=== PATIENT | female | born 1970 | race Hispanic/Latino ===

== ENCOUNTER 2018-06-16 10:41 | Emergency (ER) | payer BC ==
[2018-06-16] MEDS ORDERED: HYDROCORTISONE 25 MG SUPPOSITORY PR ONE (11:08)
[2018-06-16] MEDS ORDERED: LIDOCAINE HCL 2% JELLY 5 ML ONE (11:08)
[2018-06-16 11:48] LABS: APPEARANCE,URINE Clear (CLEAR); BILIRUBIN,URINE Negative (NEGATIVE); COLOR,URINE Yellow (YELLOW); GLUCOSE, URINE (UA) Negative (NEGATIVE); KETONES,URINE Negative (NEGATIVE); LEUKOCYTE ESTERASE ,URINE Negative (NEGATIVE); NITRATE,URINE Negative (NEGATIVE); OCCULT BLOOD,URINE Negative (NEGATIVE); PH,URINE 8.5 (5.0-8.0); PROTEIN,URINE Negative (NEGATIVE); UROBILINOGEN,URINE 0.2 mg/dL (0.2-1.0)
[2018-06-16 11:53] LABS: HCG,QUAL RESULT NEGATIVE (NEGATIVE)
== END 2018-06-16 11:49 | disposition home or self-care (01) ==
LOC: EDH 10:41
DX: K64.9 Unspecified hemorrhoids (principal); I10 Essential (primary) hypertension; Z98.890 Other specified postprocedural states; Z88.6 Allergy status to analgesic agent
CPT/HCPCS: 81003; 81025

== ENCOUNTER 2024-05-23 12:24 | Emergency (ER) | payer BC, SELFPAY ==
[~2024-05-23] VITALS: Ht 162.6 cm; Wt 81.6 kg
[~2024-05-23 12:24] MED LIST: HYDR-3421 PO; NITR100C4 PO
--- NOTE | 2024-05-23 12:47 | NUR ---
DR MCGUIRE RADIOLOGY CT NEGATIVE CODE STROKE NOTIFIED DR SWENSON
--- NOTE | 2024-05-23 12:49 | HMCIMG ---
Exam: NONCONTRAST CT BRAIN REASON: STROKE/TIA. COMPARISON: 03/18/2024 TECHNIQUE: Images are obtained from vertex to the skull base. The exam was performed without IV contrast. FINDINGS: There is normal appearing brain parenchyma. There are no focal mass lesions. There is is no evidence of intracranial hemorrhage or acute stroke. Ventricles and sulci appear normal. Posterior fossa and brainstem structures are unremarkable. Paranasal sinuses and remaining extracranial soft tissues appear normal as well. IMPRESSION: 1. Normal noncontrast CT brain. 2. These findings discussed with patient's care team at the time of dictation. CT was performed with one or more following dose reduction techniques: automated exposure control, adjustment of the mA and kv according to patient's size, or use of a iterative reconstruction technique.
[2024-05-23 12:58] LABS: BASOPHILS # (AUTO) 0.04 K/uL (0.00-0.20); BASOPHILS % (AUTO) 0.4 % (0.0-5.0); EOSINOPHILS # (AUTO) 0.05 K/uL (0.00-0.70); EOSINOPHILS % (AUTO) 0.6 % (0.0-8.0); HEMATOCRIT 46.2 % (36-48); IMMATURE GRANULOCYTE ABSOLUTE 0.02 K/uL (0-1); LYMPHOCYTES # (AUTO) 2.6 K/uL (1.0-4.8); LYMPHOCYTES % (AUTO) 28.5 % (21.0-51.0); MEAN CORPUSCULAR HEMOGLOBIN 29.3 pg (27.0-33.0); MEAN CORPUSCULAR HGB CONC 34.2 g/dL (32.0-36.0); MEAN CORPUSCULAR VOLUME 85.7 fL (79-99); MONOCYTES # (AUTO) 0.5 K/uL (0.1-1.0); MONOCYTES % (AUTO) 5.8 % (3.0-13.0); NEUTROPHILS # (AUTO) 5.8 K/uL (1.8-7.7); NEUTROPHILS % (AUTO) 64.5 % (40.0-77.0); PLATELET COUNT (AUTO) 385 K/uL (130-400); RED BLOOD CELL COUNT(AUTO) 5.39 MIL/uL (4.00-5.50); RED CELL DISTRIBUTION WIDTH 12.5 % (11.0-15.5)
[2024-05-23 13:00] LABS: POTASSIUM 3.4 mmol/L (3.5-5.1)
[2024-05-23 13:10] LABS: INR 0.96 (0.85-1.15); PROTHROMBIN TIME 10.4 SEC (9.6-11.6)
[2024-05-23 13:11] LABS: PARTIAL THROMBOPLASTIN TIME 24.1 SEC (26.3-35.5)
--- NOTE | 2024-05-23 13:20 | HMCIMG ---
CHEST 1VW REASON: R\O STROKE] COMPARISON: 03/18/2024 FINDINGS: Single view of the chest was obtained. Lungs are clear. Heart size is normal. There is no pulmonary vascular congestion. Mediastinum and bony thorax appear unremarkable. IMPRESSION: 1. Normal single view chest x-ray.
--- NOTE | 2024-05-23 13:21 | NUR ---
PT IS ABLE TO AMBULATE TO RESTROOM, STEADY GAIT, MINIMAL ASSISTANCE.
[2024-05-23 13:26] LABS: B-TYPE NATRIURETIC PEPTIDE 12 pg/mL (0-100)
[2024-05-23 13:38] LABS: APPEARANCE,URINE CLEAR (CLEAR); BILIRUBIN,URINE NEGATIVE (NEGATIVE); COLOR,URINE COLORLESS (YELLOW); GLUCOSE, URINE (UA) 70 mg/dL (NEGATIVE); KETONES,URINE 5 mg/dL (NEGATIVE); LEUKOCYTE ESTERASE ,URINE NEGATIVE Leu/uL (NEGATIVE); NITRATE,URINE NEGATIVE (NEGATIVE); OCCULT BLOOD,URINE NEGATIVE (NEGATIVE); PH,URINE 7.5 (5.0-8.0); PROTEIN,URINE NEGATIVE (NEGATIVE); UROBILINOGEN,URINE 0.2 mg/dL (0.2-1.0)
[2024-05-23 13:41] LABS: ADD UA MICROSCOPIC YES
--- NOTE | 2024-05-23 13:57 | EKG ---
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
[2024-05-23 14:04] LABS: RBC,URINE 0-1 /HPF (0-1); SQUAMOUS EPITHELIAL CELL,UR RARE /HPF (0-2); WBC,URINE 0-1 /HPF (0-1)
--- NOTE | 2024-05-23 14:25 | NUR ---
BEDSIDE SWALLOW EVAL COMPLETED. No s/s of aspiration. Recommend regular solids, thin liquids and pills whole with liquids as tolerated. Compensatory strategies: 1. sit upright during oral intake [employer] reviewed results and recommendations with patient and nurse [place]. [employer] educated patient on risks and consequences of aspiration. Speech therapy not warranted at this time. All questions answered. Addendum: 05/23/[address] VINAY STRAUSS Amended: Links added.
--- NOTE | 2024-05-23 14:30 | NUR ---
COGNITIVE-LINGUISTIC EVALUATION COMPLETED. WITHIN FUNCTIONAL LIMITS. EVALUATION: Pt AAOX4. Pt REQUESTS WANTS AND NEEDS INDEPENDENTLY WITH CLEAR SPEECH INTELLIGIBILITY. Pt COMMUNICATING AT CONVERSATIONAL LEVEL WITH NO DEFICITS IDENTIFIED AT THIS TIME. Pt COMPLETED COGNITIVE-LINGUISTIC EVALUATION WITH CORRECT AND TIMELY ANSWERS. SPEECH THERAPY NOT WARRANTED. ALL QUESTIONS ANSWERED AT THIS TIME. EL TEACHER REVIEWED RESULTS AND RECOMMENDATIONS WITH PATIENT AND NURSE VASHTI. Addendum: 05/23/[address] VINAY STRAUSS Amended: Links added.
--- NOTE | 2024-05-23 14:51 | ERN ---
General Chief Complaint: Stroke Symptoms Stated Complaint: STROKE Time Seen by MD: 12:29 Time Seen by Midlevel: 12:29 Source: patient History of Present Illness Initial Comments Patient is a 53-year-old female with no significant past medical history presenting to the emergency department with facial numbness that started at 10:00 a.m. this morning. She denies any focal weakness. On arrival she is tearful and hyperventilating. Stroke alert was called overhead and was activated by triage nurse. Allergies: Coded Allergies: ibuprofen (Unverified Allergy, Unknown, 03/18/24) Home Meds Active Scripts Hydroxyzine HCl (Hydroxyzine HCl) 25 Mg Tablet, 25 MG PO TID PRN for ANXIETY, #30 TAB Prov:MICHAEL PORRAS MD 03/18/24 Nitrofurantoin Monohyd/M-Cryst (Macrobid 100 mg Capsule) 100 Mg Capsule, 100 MG PO BID for 5 Days, #10 CAP Prov:MICHAEL PORRAS MD 03/18/24 Past Medical History Past Medical History: Hypertension Past Surgical History: Unknown Female( History) History: Not Applicable NIH STROKE SCALE: NIH STROKE SCALE Response (Comments) Value Level of Consciousness Alert 0 Ask patient month and their age Answers both correct 0 Command to open eyes, make fist and let go Obeys both correct 0 Best gaze (horizontal eye movement) Normal 0 Visual Field Testing No Visual Field Loss 0 Facial Paresis Normal / Symmetrical 0 Motor Function - Left Arm Normal 0 Motor Function - Right Arm Normal 0 Motor Function - Left Leg Normal 0 Motor Function - Right Leg Normal 0 Limb Ataxia No Ataxia 0 Sensory-pin prick to arms, legs, trunk and face Normal 0 Best Language (describe picture, name items and read) No Aphasia 0 Dysarthria (read several words) Normal Articulation 0 Extinction and Inattention Normal 0 Total 0 Results Laboratory and Microbiology Lab and Micro Result Laboratory Tests Test 05/23/24 12:47 05/23/24 13:22 White Blood Count 9.0 K/uL (4.8-10.8) Red Blood Count 5.39 MIL/uL (4.00-5.50) Hemoglobin 15.8 g/dL (12.0-16.0) Hematocrit 46.2 % (36-48) Mean Corpuscular Volume 85.7 fL (79-99) Mean Corpuscular Hemoglobin 29.3 pg (27.0-33.0) Mean Corpuscular Hemoglobin Concent 34.2 g/dL (32.0-36.0) Red Cell Distribution Width 12.5 % (11.0-15.5) Platelet Count 385 K/uL (130-400) Mean Platelet Volume 10.7 fL (7.5-10.5) H Immature Granulocyte % (Auto) 0.2 % (0-1) Neutrophils (%) (Auto) 64.5 % (40.0-77.0) Lymphocytes (%) (Auto) 28.5 % (21.0-51.0) Monocytes (%) (Auto) 5.8 % (3.0-13.0) Eosinophils (%) (Auto) 0.6 % (0.0-8.0) Basophils (%) (Auto) 0.4 % (0.0-5.0) Neutrophils # (Auto) 5.8 K/uL (1.8-7.7) Lymphocytes # (Auto) 2.6 K/uL (1.0-4.8) Monocytes # (Auto) 0.5 K/uL (0.1-1.0) Eosinophils # (Auto) 0.05 K/uL (0.00-0.70) Basophils # (Auto) 0.04 K/uL (0.00-0.20) Absolute Immature Granulocyte (auto 0.02 K/uL (0-1) Nucleated Red Blood Cells 0.0 % (0.0-0.19) Prothrombin Time 10.4 SEC (9.6-11.6) Prothromb Time International Ratio 0.96 (0.85-1.15) Activated Partial Thromboplast Time 24.1 SEC (26.3-35.5) L Sodium Level 137 mmol/L (136-145) Potassium Level 3.4 mmol/L (3.5-5.1) L Chloride Level 99 mmol/L (101-111) L Carbon Dioxide Level 25 mmol/L (21-32) Blood Urea Nitrogen 6 mg/dL (7-18) L Creatinine 1.0 mg/dL (0.5-1.0) Glomerular Filtration Rate Calc 67 mL/min (>90) Random Glucose 222 mg/dL (70-105) H Total Calcium 9.6 mg/dL (8.5-10.1) Total Creatine Kinase 80 U/L (21-232) Troponin I High Sensitivity 4 ng/L (4-50) B-Type Natriuretic Peptide 12 pg/mL (0-100) LDL Cholesterol 110 mg/dL (0-99) H Urine Color COLORLESS (YELLOW) Urine Appearance CLEAR (CLEAR) Urine pH 7.5 (5.0-8.0) Urine Specific [place] 1.005 (1.001-1.031) Urine Protein NEGATIVE mg/dL (NEGATIVE) Urine Glucose (UA) 70 mg/dL (NEGATIVE) H Urine Ketones 5 mg/dL (NEGATIVE) H Urine Occult Blood NEGATIVE (NEGATIVE) Urine Nitrate NEGATIVE (NEGATIVE) Urine Bilirubin NEGATIVE mg/dL (NEGATIVE) Urine Urobilinogen 0.2 mg/dL (0.2-1.0) Urine Leukocyte Esterase NEGATIVE [place]/uL Urine RBC 0-1 /HPF (0-1) Urine WBC 0-1 /HPF (0-1) Urine Squamous Epithelial Cells RARE /HPF (0-2) Urine Bacteria None /HPF (None Seen) Labs Reviewed?: Yes MDM MDM: Patient is a 53-year-old female with no significant past medical history presenting to the emergency department with facial numbness that started at 10:00 a.m. this morning. She denies any focal weakness. On arrival she is tearful and hyperventilating. Stroke alert was called overhead and was activated by triage nurse. On my physical examination patient is hyperventilating. She was reporting numbness to her face and hands however she has full range motion of bilateral upper and lower extremities. There was no facial droop. She has a GCS of 15. Cranial nerves appear to be intact. NIH of 0. Patient was sent to CT immediately. Her CT scan is negative for any intracranial bleed. Her blood work today is unremarkable. She was observed in the emergency department for over 2 hours and remained stable. On repeat examination patient is lying down in bed comfortably in no acute distress. She was on her phone texting. On repeat examination patient does state that she has been under a lot of stress lately she states her brother earlier this month and she admits to going through a lot of emotions. She believes she may have had a panic attack. I do not believe patient was having a stroke. She does not meet criteria for TNK given her rapidly resolving symptoms. Lab and imaging were discussed with the patient and all of her questions were answered. She will be discharged home with supportive management. Differential diagnosis: Anxiety, panic attack, hyperventilation syndrome, intracranial bleed There are no social concerns with this patient. Prescription drug management Prescriptions will include: None Medical management and examination interpretation discussions were had by me with other qualified healthcare professionals as indicated for the patient's care. ED Course Orders Procedure Category Date Status Time Vital Signs Per CPOE 05/23/24 Transmitted Routine 12:26 Cardiac Monitoring CPOE 05/23/24 Transmitted 12:26 Bedside Glucose CPOE 05/23/24 Transmitted Fingerstick 12:26 Oxygen By Nc/Pulse Ox CPOE 05/23/24 Transmitted 12:26 Saline Lock Iv CPOE 05/23/24 Transmitted 12:26 Nothing By Mouth DIET 05/23/24 Complete Lunch Bedside Swallow Eval ST 05/23/24 Transmitted 12:26 Cbc With Differential LAB 05/23/24 Complete 12:26 Partial LAB 05/23/24 Complete Thromboplastin Time 12: Prothrombin Time With LAB 05/23/24 Complete INR 12:26 Ct Head/Brain W/O CT 05/23/24 Resulted Contrast 12:26 12 Lead Ekg Tracing- EKG 05/23/24 Resulted Technical 12:26 Neurology Consult CONPHYSVC 05/23/24 Transmitted 12:26 Pulse Ox(Continuous) RT 05/23/24 Transmitted 12:26 Npo W/Aspiration CPOE 05/23/24 Transmitted Precautions 12:26 Complete Nih Stroke CPOE 05/23/24 Transmitted Scale 12:26 Creatine Kinase, Total LAB 05/23/24 Complete 12:26 Troponin I High LAB 05/23/24 Complete Sensitivity 12:26 B-Type Natriuretic LAB 05/23/24 Complete Peptide 12:26 Ldl Direct LAB 05/23/24 Complete 12:26 Urinalysis Profile LAB 05/23/24 Complete 12:26 Chest 1vw RAD 05/23/24 Resulted 12:26 Nihss Every Shift And CPOE 05/23/24 Transmitted PRN 12:26 Neurological Vs Q4hrs [place] 05/23/24 Transmitted 12:26 Basic Metabolic Panel LAB 05/23/24 Complete 12:26 Vital Signs Date Time Temp Pulse Resp B/P (MAP) Pulse Ox O2 Delivery O2 Flow Rate FiO2 05/23/24 15:27 98.1 86 18 136/69 98 Room Air* 0 21 05/23/24 15:00 98.1 86 18 134/69 98 Room Air* 0 05/23/24 14:25 N/A Room Air 05/23/24 14:00 98.1 86 18 122/67 98 Room Air* 0 05/23/24 13:11 86 18 133/73 98 Room Air* 0 05/23/24 12:25 98.1 90 24 187/104 98 Room Air 0 [place] [id number] [place] [id number] IMAGING REPORT Signed PATIENT: MICHAEL WILSON MR#: [id number] : 1970 SEX: F AGE: 53 LOCATION: [facility] ORDER 28 STATUS: REG REPORT#: [id number] SERVICE 25 REASON: STROKE/TIA ORDERING PHYSICIAN: ALONSO SWENSON DO PROCEDURE: HEAD WO - CT HEAD/BRAIN W/O CONTRAST Exam: NONCONTRAST CT BRAIN REASON: STROKE/TIA. COMPARISON: 03/18/2024 TECHNIQUE: Images are obtained from vertex to the skull base. The exam was performed without IV contrast. FINDINGS: There is normal appearing brain parenchyma. There are no focal mass lesions. There is is no evidence of intracranial hemorrhage or acute stroke. Ventricles and sulci appear normal. Posterior fossa and brainstem structures are unremarkable. Paranasal sinuses and remaining extracranial soft tissues appear normal as well. IMPRESSION: 1. Normal noncontrast CT brain. 2. These findings discussed with patient's care team at the time of dictation. CT was performed with one or more following dose reduction techniques: automated exposure control, adjustment of the mA and kv according to patient's size, or use of a iterative reconstruction technique. DICTATED BY: LORENZO MCGUIRE MD DATE: 05/23/241244 ELECTRONICALLY SIGNED BY: LORENZO MCGUIRE MD DATE: 05/23/24 1241 [place] [id number] [address] IMAGING REPORT Signed PATIENT: MICHAEL WILSON MR#: [id number] : 1970 SEX: F AGE: 53 LOCATION: [facility] ORDER 28 STATUS: [facility] REPORT#: [id number] SERVICE 25 REASON: R\O STROKE] ORDERING PHYSICIAN: ALONSO SWENSON DO PROCEDURE: CXR1VW - CHEST 1VW CHEST 1VW REASON: R\O STROKE] COMPARISON: 03/18/2024 FINDINGS: Single view of the chest was obtained. Lungs are clear. Heart size is normal. There is no pulmonary vascular congestion. Mediastinum and bony thorax appear unremarkable. IMPRESSION: 1. Normal single view chest x-ray. DICTATED BY: LORENZO MCGUIRE MD DATE: 05/23/241316 ELECTRONICALLY SIGNED BY: LORENZO MCGUIRE MD DATE: 05/23/24 1320 DX & DISP Disposition: Discharge Departure Impression: Primary Impression: Facial numbness Additional Impressions: Anxiety, Hyperventilation syndrome Condition: Stable Additional Instructions: Your blood work today is unremarkable. Your CT scan of the head is negative for any acute abnormality. Please follow up with your primary care doctor in 2-3 days for repeat evaluation. Return to the ER for any new or worsening symptoms Referrals: RITESH HORAN MD (PCP) Time of Disposition: 14:56 I have reviewed the case, and I agree with, Diagnosis and Plan I performed the substantive portion of the visit. I have reviewed and personally made and approve the management plan that is documented in the note by myself or the HAN. I acknowledge for responsibility for the patient's ma nagement plan. BATOOL MEJIA May 23, 2024 14:51 ALONSO SWENSON DO May 25, 2024 11:52
[2024-05-23 15:27] VITALS: BP 136/69; PULSE 86; RESP 18; TEMP 98.1; O2SAT 98
== END 2024-05-23 15:29 | disposition home or self-care (01) ==
LOC: EDH 12:24 → MERGE 12:24 → EDH 15:29
DX: F45.8 Other somatoform disorders (principal); F41.9 Anxiety disorder, unspecified; I10 Essential (primary) hypertension; Z88.6 Allergy status to analgesic agent
CPT/HCPCS: 36415; 70450; 71045; 80048; 81001; 82550; 82948; 83721; 83880; 84484; 85025; 85610; 85730; 92522; 92610; 93005; 99284